=== PATIENT | female | born 1980 | race African-American/Black ===

== ENCOUNTER 2018-10-24 15:16 | Observation (INO) | payer BC ==
[~2018-10-24] VITALS: Ht 170.2 cm; Wt 113.1 kg
[2018-10-24 15:45] LABS: BILIRUBIN,URINE NEGATIVE (NEG); CLARITY,URINE CLEAR; COLOR,URINE YELLOW; NITRITE,URINE NEGATIVE (NEG); PH,URINE 5.5; PROTEIN,URINE 100 mg/dL (NEG-TRACE); UROBILINOGEN,URINE 0.2 mg/dL (0.2 mg/dL)
[2018-10-24] MEDS ORDERED: MORPHINE SULFATE 4 MG/ML VIAL. IV ONE ×2 (15:45→16:15)
[2018-10-24] MEDS ORDERED: MORPHINE SULFATE 4 MG/ML VIAL. ONE (15:45)
[2018-10-24] MEDS ORDERED: IV NORMAL SALINE 1000ML BAG 1,000 ML IV ONE (15:45)
[2018-10-24] MEDS ORDERED: ONDANSETRON PF 4 MG/2 ML VIAL. IV ONE (15:45)
[2018-10-24 15:54] LABS: BACTERIA,URINE MODERATE /HPF (0-FEW); SQUAMOUS EPITHELIAL CELL,UR MANY /LPF
--- NOTE | 2018-10-24 15:54 | PHYS DOC ---
Past Medical History Past Medical History: Diabetes-Type II Past Surgical History: Other Additional Past Surgical Histo: D/C, BREAST REDUCTION Alcohol Use: None Drug Use: None Adult General Chief Complaint Chief Complaint: ABDOMINAL PAIN HPI HPI Patient is a 38 year old AA female who presents to the emergency department with complaints of left-sided abdominal pain for the last hour. Patient states she has vomited so many times that she has been dry heaving. She currently rates her pain a 10 out of 10 on the pain scale, she denies any alleviating or exacerbating factors. ROS She denies any fever, cough, shortness of breath, chest pain, nasal congestion, sore throat, headache, or body aches. Patient denies any diarrhea, bloody stools, dysuria, hematuria, increased urinary frequency, or back pain. She states that her last menstrual cycle was the middle of last month. Patient states there is a possibility she could be . All other ROS is neg unless otherwise noted in HPI. Review of Systems Review of Systems See Above Current Medications Current Medications Current Medications Medications (Trade) Dose Ordered Sig/Tristian Start Time Stop Time Status Last Admin Dose Admin Ketorolac Tromethamine (Toradol 15mg Vial) 15 mg 1X ONCE 10/24/18 16:15 10/24/18 16:16 DC 10/24/18 16:09 15 MG Morphine Sulfate (Morphine Sulfate) 4 mg 1X ONCE 10/24/18 16:15 10/24/18 16:16 DC Ondansetron HCl (Zofran) 4 mg 1X ONCE 10/24/18 15:45 10/24/18 15:46 DC 10/24/18 15:48 4 MG Sodium Chloride 1,000 ml @ 1,000 mls/hr 1X ONCE 10/24/18 15:45 10/24/18 16:44 DC 10/24/18 15:48 1,000 MLS/HR Allergies Allergies Allergies Coded Allergies Type Severity Reaction Last Updated Verified codeine Allergy Unknown swelling 10/24/18 No Physical Exam Physical Exam See Above Constitutional: Well developed, well nourished, moderate distress, non-toxic appearance. [] HENT: Normocephalic, atraumatic, bilateral external ears normal, oropharynx moist, no oral exudates, nose normal. [] Eyes: PERRLA, EOMI, conjunctiva normal, no discharge. [] Neck: Normal range of motion, no stridor. [] Cardiovascular:Heart rate regular rhythm, no murmur [] Lungs & Thorax: Bilateral breath sounds clear to auscultation [] Abdomen: Bowel sounds normal, soft, LLQ and LUQ TTP, no rebound tenderness, no guarding, no masses, no pulsatile masses. [] Skin: Warm, dry, no erythema, no rash. [] Back: No tenderness, no CVA tenderness. [] Extremities: No cyanosis, no clubbing, ROM intact, no edema. [] Neurologic: Alert and oriented X 3, no focal deficits noted. [] Psychologic: Affect normal, judgement normal, mood normal. [] Current Patient Data Vital Signs Vital Signs Date Time Temp Pulse Resp B/P (MAP) Pulse Ox O2 Delivery O2 Flow Rate FiO2 10/24/18 16:30 98 16 140/82 (101) 99 Room Air 10/24/18 15:36 98.4 98.4 Lab Values Laboratory Tests Test 10/24/18 15:25 10/24/18 15:33 10/24/18 15:37 Urine Collection Type Unknown Urine Color Yellow Urine Clarity Clear Urine pH 5.5 Urine Specific [place] >=1.030 Urine Protein 100 mg/dL (NEG-TRACE) Urine Glucose (UA) >=1000 mg/dL (NEG) Urine Ketones (Stick) Trace mg/dL (NEG) Urine Blood Large (NEG) Urine Nitrite Negative (NEG) Urine Bilirubin Negative (NEG) Urine Urobilinogen Dipstick 0.2 mg/dL (0.2 mg/dL) Urine Leukocyte Esterase Negative (NEG) Urine RBC 11-20 /HPF (0-2) Urine WBC 1-4 /HPF (0-4) Urine Squamous Epithelial Cells Many /LPF Urine Bacteria Moderate /HPF (0-FEW) Urine Mucus Marked /LPF White Blood Count 6.8 x10^3/uL (4.0-11.0) Red Blood Count 4.83 x10^6/uL (3.50-5.40) Hemoglobin 11.7 g/dL (12.0-15.5) L Hematocrit 35.6 % (36.0-47.0) L Mean Corpuscular Volume 74 fL (79-100) L Mean Corpuscular Hemoglobin 24 pg (25-35) L Mean Corpuscular Hemoglobin Concent 33 g/dL (31-37) Red Cell Distribution Width 17.8 % (11.5-14.5) H Platelet Count 286 x10^3/uL (140-400) Neutrophils (%) (Auto) 74 % (31-73) H Lymphocytes (%) (Auto) 17 % (24-48) L Monocytes (%) (Auto) 1 % (0-9) Eosinophils (%) (Auto) 8 % (0-3) H Basophils (%) (Auto) 1 % (0-3) Neutrophils # (Auto) 5.0 x10^3/uL (1.8-7.7) Lymphocytes # (Auto) 1.2 x10^3/uL (1.0-4.8) Monocytes # (Auto) 0.1 x10^3/uL (0.0-1.1) Eosinophils # (Auto) 0.5 x10^3/uL (0.0-0.7) Basophils # (Auto) 0.0 x10^3/uL (0.0-0.2) Sodium Level 136 mmol/L (136-145) Potassium Level 3.7 mmol/L (3.5-5.1) Chloride Level 99 mmol/L (98-107) Carbon Dioxide Level 21 mmol/L (21-32) Anion Gap 16 (6-14) H Blood Urea Nitrogen 16 mg/dL (7-20) Creatinine 1.0 mg/dL (0.6-1.0) Estimated GFR (Cockcroft-Gault) 75.1 BUN/Creatinine Ratio 16 (6-20) Glucose Level 318 mg/dL (70-99) H Calcium Level 9.3 mg/dL (8.5-10.1) Magnesium Level 1.4 mg/dL (1.8-2.4) L Total Bilirubin 0.4 mg/dL (0.2-1.0) Aspartate Amino Transferase (AST) 38 U/L (15-37) H Alanine Aminotransferase (ALT) 59 U/L (14-59) Alkaline Phosphatase 85 U/L (46-116) C-Reactive Protein, Quantitative 14.7 mg/L (0-3.3) H Total Protein 8.3 g/dL (6.4-8.2) H Albumin 3.9 g/dL (3.4-5.0) Albumin/Globulin Ratio 0.9 (1.0-1.7) L Lipase 203 U/L (73-393) POC Urine HCG, Qualitative Hcg negative (Negative) Laboratory Tests 10/24/18 15:33 Laboratory Tests 10/24/18 15:33 EKG EKG [] Radiology/Procedures Radiology/Procedures PROCEDURE: CT ABDOMEN PELVIS WO CONTRAST Exam: CT abdomen and pelvis without contrast INDICATION: Left lower quadrant pain TECHNIQUE: Sequential axial images through the abdomen and pelvis obtained without IV contrast. Sagittal and coronal reformatted images were reconstructed from the axial data and reviewed. Comparisons: None FINDINGS: Heart size is normal. No pericardial effusion. Visualized lung bases are clear. No pleural effusion. Evaluation of the solid organs is limited secondary to noncontrast technique. Liver, spleen, pancreas, gallbladder and adrenals are unremarkable. There is moderate left-sided hydronephrosis. 8 mm calculus at the left ureterovesical junction. Nonobstructing 8 mm calculus at the lower pole of the left kidney. No other renal or ureteral calculi are identified. Bladder is decompressed not well evaluated. Uterus is not enlarged. No abnormal adnexal mass. Large and small bowel are unremarkable. Appendix is not identified. No free intra-abdominal air or fluid. Abdominal aorta has a normal course and caliber. No enlarged intra-abdominal lymph nodes are identified. No suspicious osseous lesions or acute fractures. IMPRESSION: 1. There is a 8 mm calculus at the left ureterovesical junction causing moderate left-sided hydronephrosis. 2. Nonobstructing 8 mm calculus at the lower pole of the left kidney. [] Course & Med Decision Making Course & Med Decision Making Pertinent Labs and Imaging studies reviewed. (See chart for details) dx: L kidney stone, nausea & vomiting Pt was given a total of 30 mg toradol, 4 mg zofran, 8 mg of morphine, and 1 L of NS. Pt's pain decreased but patient continued to be tachycardic and shaky, will admit for further observation and pain control CMP anion gap 16, gluocse 318, Mg 1.4, AST 38, Crp 14.7 otherwise unremarkable, CBC pending Dr. Epps aware, UA concerning for >1000 glucose, 11-[address] revealed 8 mm calculus at the left ureterovesical junction causing moderate left-sided hydronephrosis. 1711-Spoke with Dr. Anast if patient will tolerate d/c have patient follow up in the office tomorrow and prescribe Flomax 0.4 once daily, ibuprofen 600 mg q6 hours, and hydrocodone prn. 1718- Spoke with patient who remains tachycardic rate of 120's and shaky. Pt reports concern of inability to control pain at home. Offered admission to patient who agreed with POC. 1725- Spoke with Dr. Giles who is the admitting physician, and care was assumed following discussion of patient. 30 mg of IV Toradol ordered every 6 hours as needed for pain per his orders. Patient's vital signs stable. Patient remains afebrile, appears nontoxic, respirations even and unlabored. Patient will be admitted to the med/surg floor for OBS. Patient's case and plan of care also discussed with Dr. Alis Ardon Disclaimer Reva Disclaimer This electronic medical record was generated, in whole or in part, using a voice recognition dictation system. Departure Departure Impression: Primary Impression: Left renal stone Additional Impressions: Nausea & vomiting Hydronephrosis with renal calculous obstruction Disposition: ADMITTED INPATIENT Admitting Physician: MILAGROS (juan miguel) Condition: STABLE Referrals: OLY DOVE (PCP) Problem Qualifiers Additional Impressions: Nausea & vomiting Vomiting type: unspecified Vomiting Intractability: non-intractable Qualified Codes: R11.2 - Nausea with vomiting, unspecified SUZANNE AGUAYO SWITCH OPERATOR Oct 24, 2018 15:54
[2018-10-24 15:57] LABS: CALCIUM 9.3 mg/dL (8.5-10.1); GFR 75.1; POTASSIUM 3.7 mmol/L (3.5-5.1)
[2018-10-24 16:03] LABS: ALBUMIN 3.9 g/dL (3.4-5.0); ALBUMIN/GLOBULIN RATIO 0.9 (1.0-1.7); C-REACTIVE PROTEIN 14.7 mg/L (0-3.3); MAGNESIUM 1.4 mg/dL (1.8-2.4); TOTAL BILIRUBIN 0.4 mg/dL (0.2-1.0); TOTAL PROTEIN 8.3 g/dL (6.4-8.2)
[2018-10-24] MEDS ORDERED: KETOROLAC 15 MG/ML VIAL. ONE (16:07)
[2018-10-24] MEDS ORDERED: KETOROLAC 15 MG/ML VIAL. IV ONE ×2 (16:15→17:30)
--- NOTE | 2018-10-24 16:53 | RAD ---
Exam: CT abdomen and pelvis without contrast INDICATION: Left lower quadrant pain TECHNIQUE: Sequential axial images through the abdomen and pelvis obtained without IV contrast. Sagittal and coronal reformatted images were reconstructed from the axial data and reviewed. Comparisons: None FINDINGS: Heart size is normal. No pericardial effusion. Visualized lung bases are clear. No pleural effusion. Evaluation of the solid organs is limited secondary to noncontrast technique. Liver, spleen, pancreas, gallbladder and adrenals are unremarkable. There is moderate left-sided hydronephrosis. 8 mm calculus at the left ureterovesical junction. Nonobstructing 8 mm calculus at the lower pole of the left kidney. No other renal or ureteral calculi are identified. Bladder is decompressed not well evaluated. Uterus is not enlarged. No abnormal adnexal mass. Large and small bowel are unremarkable. Appendix is not identified. No free intra-abdominal air or fluid. Abdominal aorta has a normal course and caliber. No enlarged intra-abdominal lymph nodes are identified. No suspicious osseous lesions or acute fractures. IMPRESSION: 1. There is a 8 mm calculus at the left ureterovesical junction causing moderate left-sided hydronephrosis. 2. Nonobstructing 8 mm calculus at the lower pole of the left kidney. Exposure: One or more of the following in the visualized dose reduction techniques were utilized for this examination: 1. Automated exposure control 2. Adjustment of the MA and/or KV according to patient size 3. Use of iterative of reconstructive technique Electronically signed by: Hernan Molina MD (10/24/2018 4:50 PM) [id number]
[2018-10-24] MEDS ORDERED: ONDANSETRON PF 4 MG/2 ML VIAL. IV PRN (17:30)
[2018-10-24 17:33] LABS: BASO % 1 % (0-3); EOS # 0.5 x10^3/uL (0.0-0.7); EOS % 8 % (0-3); HEMATOCRIT 35.6 % (36.0-47.0); HEMOGLOBIN 11.7 g/dL (12.0-15.5); LYMPH # 1.2 x10^3/uL (1.0-4.8); LYMPH % 17 % (24-48); MEAN CORPUSCULAR HEMOGLOBIN 24 pg (25-35); MEAN CORPUSCULAR HGB CONC 33 g/dL (31-37); MEAN CORPUSCULAR VOLUME 74 fL (79-100); MONO # 0.1 x10^3/uL (0.0-1.1); MONO % 1 % (0-9); NEUT % 74 % (31-73); PLATELET COUNT 286 x10^3/uL (140-400); RED BLOOD COUNT 4.83 x10^6/uL (3.50-5.40); RED CELL DISTRIBUTION WIDTH 17.8 % (11.5-14.5); WHITE BLOOD COUNT 6.8 x10^3/uL (4.0-11.0)
[2018-10-24] MEDS ORDERED: TAMSULOSIN 0.4 MG CAP.ER.24H. PO ONE (17:45)
[2018-10-24] MEDS ORDERED: ACETAMINOPHEN 500 MG TABLET PO ONE (18:30)
[2018-10-24 20:00] VITALS: BP 104/65
--- NOTE | 2018-10-24 20:01 | NUR ---
The patient, MICHEAL JEFFREY, 38 y/o, F admitted by MICHELLE CHRISTOPHER MD, was given written information regarding hospital policies, unit procedures and contact persons. Valuables were checked and her.
[2018-10-24] MEDS ORDERED: LIRA0.6P2 SQ (21:13)
[2018-10-24] MEDS ORDERED: GLYB5TAB3 PO (21:13)
[2018-10-24] MEDS ORDERED: METF10007 PO ×2 (21:13)
[2018-10-24] MEDS ORDERED: IV DEXTROSE 5% 250 ML BAG. IV PRN (21:15)
[2018-10-24] MEDS ORDERED: POLYETHYLENE GLYCOL 3350 17 GM PACKET. PO PRN (21:15)
[2018-10-24] MEDS ORDERED: DEXTROSE 50% 25 GM / 50ML DISP.SYRIN. IV PRN (21:15)
[2018-10-24] MEDS ORDERED: MAGNESIUM SULFATE 4GM 100 ML IV ONE (22:00)
[2018-10-24] MEDS: IV NORMAL SALINE 1000ML BAG 1,000 ML IV SCH (22:12)
[2018-10-24] MEDS: KETOROLAC 30 MG/ML VIAL. IV PRN (22:13)
[2018-10-24] MEDS ORDERED: INSULIN GLARGINE SYRINGE. SQ SCH (22:15)
[2018-10-24 23:00] VITALS: BP 87/41
[2018-10-24] MEDS: traMADol 50 MG TABLET PO PRN (23:54)
[2018-10-25 03:00] VITALS: BP 86/41
[2018-10-25] MEDS: KETOROLAC 30 MG/ML VIAL. IV PRN ×2 (04:21→10:21)
[2018-10-25 07:00] VITALS: BP 95/56
[2018-10-25] MEDS: traMADol 50 MG TABLET PO PRN ×2 (07:22→13:43)
[2018-10-25] MEDS: IV NORMAL SALINE 1000ML BAG 1,000 ML IV SCH (07:47)
[2018-10-25] MEDS: INSULIN LISPRO 300 UNITS/3 ML VIAL. SQ SCH ×2 (08:18→11:59)
--- NOTE | 2018-10-25 08:48 | PDOC2 ---
UROLOGY CONSULT Date of Consult Date of Consult DATE: 10/25/18 TIME: 08:46 Reason for Consult Reason for Consult: L kidney stone Identification/Chief Complaint Chief Complaint left abdominal pain Source Source: Chart review, Patient History of Present Illness Reason for Visit: 38yo female who presented to ER yesterday with nausea, vomiting, and left sided abdominal pain. CT showed 8mm left UVJ stone with moderate hydronephrosis. WBC and Creatinine WNL. UA with large blood. She was admitted for pain control last night. Today she has passed a stone and kept it in a specimen cup. She feels that the pain is starting to improve. She still feels nauseous but no vomiting. She has no difficulty passing urine and denies dysuria, hematuria, fevers today. She has a history of passing multiple stones in the past. Past Medical History Renal/: Other (kidney stones) Endocrine: Diabetes Current Problem List Problems: (1) Ureteral stone with hydronephrosis (2) Left renal stone Current Medications Current Medications Current Medications Acetaminophen (Tylenol) 1,000 mg 1X ONCE PO Last administered on 10/24/18at 18:34; Start 10/24/18 at 18:30; Stop 10/24/18 at 18:35; Status DC Dextrose 250 ml PRN Q15MIN PRN IV SEE COMMENTS; Start 10/24/18 at 21:15 Dextrose (Dextrose 50%-Water Syringe) 12.5 gm PRN Q15MIN PRN IV SEE COMMENTS; Start 10/24/18 at 21:15 Insulin Glargine (Lantus Syringe) 8 unit QHS SQ Last administered on 10/24/18at 22:19; Start 10/24/18 at 22:15 Insulin Human Lispro (HumaLOG) 0-9 UNITS TIDWMEALS SQ Last administered on 10/25/18at 08:18; Start 10/25/18 at 08:00 Ketorolac Tromethamine (Toradol 15mg Vial) 15 mg 1X ONCE IV Last administered on 10/24/18at 16:09; Start 10/24/18 at 16:15; Stop 10/24/18 at 16:16; Status DC Ketorolac Tromethamine (Toradol 15mg Vial) 15 mg 1X ONCE IV Last administered on 10/24/18at 18:34; Start 10/24/18 at 17:30; Stop 10/24/18 at 17:31; Status DC Ketorolac Tromethamine (Toradol 15mg Vial) 15 mg STK-MED ONCE .ROUTE ; Start 10/24/18 at 16:07; Stop 10/24/18 at 16:07; Status DC Ketorolac Tromethamine (Toradol 30mg Vial) 30 mg PRN Q6HRS PRN IV pain Last administered on 10/25/18at 04:22; Start 10/24/18 at 17:30; Stop 10/29/18 at 17:29 Magnesium Sulfate 100 ml @ 25 mls/hr 1X ONCE IV Last administered on 10/24/18at 22:13; Start 10/24/18 at 22:00; Stop 10/25/18 at 01:59; Status DC Morphine Sulfate (Morphine Sulfate) 4 mg 1X ONCE IV Last administered on 10/24/18at 15:48; Start 10/24/18 at 15:45; Stop 10/24/18 at 15:46; Status DC Morphine Sulfate (Morphine Sulfate) 4 mg 1X ONCE IV ; Start 10/24/18 at 16:15; Stop 10/24/18 at 16:16; Status DC Morphine Sulfate (Morphine Sulfate) 4 mg STK-MED ONCE .ROUTE ; Start 10/24/18 at 15:45; Stop 10/24/18 at 15:46; Status DC Ondansetron HCl (Zofran) 4 mg 1X ONCE IV Last administered on 10/24/18at 15:48; Start 10/24/18 at 15:45; Stop 10/24/18 at 15:46; Status DC Ondansetron HCl (Zofran) 4 mg PRN Q8HRS PRN IV NAUSEA/VOMITING; Start 10/24/18 at 17:30; Stop 10/25/18 at 17:29 Polyethylene Glycol (miraLAX PACKET) 17 gm PRN DAILY PRN PO CONSTIPATION; Start 10/24/18 at 21:15 Sodium Chloride 1,000 ml @ 100 mls/hr Q10H IV Last administered on 10/25/18at 07:47; Start 10/24/18 at 21:45 Sodium Chloride 1,000 ml @ 1,000 mls/hr 1X ONCE IV Last administered on 10/24/18at 15:48; Start 10/24/18 at 15:45; Stop 10/24/18 at 16:44; Status DC Tamsulosin HCl (Flomax) 0.4 mg 1X ONCE PO Last administered on 10/24/18at 18:34; Start 10/24/18 at 17:45; Stop 10/24/18 at 17:46; Status DC Tramadol HCl (Ultram) 50 mg PRN Q6HRS PRN PO PAIN Last administered on 10/25/18at 07:23; Start 10/24/18 at 22:00 Allergies Allergies: Coded Allergies: codeine (Unverified Allergy, Unknown, swelling, 10/24/18) Has tolerated morphine ROS Review Of Systems: CONSTITUTIONAL: No fever or chills EYES: No recent changes SKIN: No rash or itching CARDIOVASCULAR: No chest pain, syncope, palpitations, or edema RESPIRATORY: No SOB or cough GASTROINTESTINAL: + nausea, left abdominal pain NEUROLOGICAL: No headaches or weakness ENDOCRINE: No cold or heat intolerance GENITOURINARY: No urgency or frequency of urination MUSCULOSKELETAL: No back pain or joint pain LYMPHATICS: No enlarged lymph nodes PSYCHIATRIC: No anxiety or depression Physical Exam Physical Exam: General: Pleasant, no acute distress, well groomed Eyes: conjunctiva anicteric, eyes full range of motion ENT: moist oral mucosa, normal dentition Neck: Trachea midline, no masses Respiratory: unlabored breathing, not using accessory muscles Cardiovascular: Regular peripheral pulses, no peripheral edema Abdomen: mild LLQ tenderness, nondistended, no hepatosplenomegaly, no masses Skin: no rashes or skin lesions on visualized skin Psych: normal mood, affect. Alert and oriented x 3. Vitals VITALS Vital Signs Date Time Temp Pulse Resp B/P (MAP) Pulse Ox O2 Delivery O2 Flow Rate FiO2 10/25/18 07:23 18 95 Room Air 10/25/18 03:00 98.8 117 86/41 (56) 98.8 Labs Labs Laboratory Tests Test 10/24/18 15:25 10/24/18 15:33 10/24/18 15:37 10/24/18 20:27 Urine Collection Type Unknown Urine Color Yellow Urine Clarity Clear Urine pH 5.5 Urine Specific [place] >=1.030 Urine Protein 100 mg/dL (NEG-TRACE) Urine Glucose (UA) >=1000 mg/dL (NEG) Urine Ketones (Stick) Trace mg/dL (NEG) Urine Blood Large (NEG) Urine Nitrite Negative (NEG) Urine Bilirubin Negative (NEG) Urine Urobilinogen Dipstick 0.2 mg/dL (0.2 mg/dL) Urine Leukocyte Esterase Negative (NEG) Urine RBC 11-20 /HPF (0-2) Urine WBC 1-4 /HPF (0-4) Urine Squamous Epithelial Cells Many /LPF Urine Bacteria Moderate /HPF (0-FEW) Urine Mucus Marked /LPF White Blood Count 6.8 x10^3/uL (4.0-11.0) Red Blood Count 4.83 x10^6/uL (3.50-5.40) Hemoglobin 11.7 g/dL (12.0-15.5) Hematocrit 35.6 % (36.0-47.0) Mean Corpuscular Volume 74 fL (79-100) Mean Corpuscular Hemoglobin 24 pg (25-35) Mean Corpuscular Hemoglobin Concent 33 g/dL (31-37) Red Cell Distribution Width 17.8 % (11.5-14.5) Platelet Count 286 x10^3/uL (140-400) Neutrophils (%) (Auto) 74 % (31-73) Lymphocytes (%) (Auto) 17 % (24-48) Monocytes (%) (Auto) 1 % (0-9) Eosinophils (%) (Auto) 8 % (0-3) Basophils (%) (Auto) 1 % (0-3) Neutrophils # (Auto) 5.0 x10^3/uL (1.8-7.7) Lymphocytes # (Auto) 1.2 x10^3/uL (1.0-4.8) Monocytes # (Auto) 0.1 x10^3/uL (0.0-1.1) Eosinophils # (Auto) 0.5 x10^3/uL (0.0-0.7) Basophils # (Auto) 0.0 x10^3/uL (0.0-0.2) Sodium Level 136 mmol/L (136-145) Potassium Level 3.7 mmol/L (3.5-5.1) Chloride Level 99 mmol/L (98-107) Carbon Dioxide Level 21 mmol/L (21-32) Anion Gap 16 (6-14) Blood Urea Nitrogen 16 mg/dL (7-20) Creatinine 1.0 mg/dL (0.6-1.0) Estimated GFR (Cockcroft-Gault) 75.1 BUN/Creatinine Ratio 16 (6-20) Glucose Level 318 mg/dL (70-99) Calcium Level 9.3 mg/dL (8.5-10.1) Magnesium Level 1.4 mg/dL (1.8-2.4) Total Bilirubin 0.4 mg/dL (0.2-1.0) Aspartate Amino Transf (AST/SGOT) 38 U/L (15-37) Alanine Aminotransferase (ALT/SGPT) 59 U/L (14-59) Alkaline Phosphatase 85 U/L (46-116) C-Reactive Protein, Quantitative 14.7 mg/L (0-3.3) Total Protein 8.3 g/dL (6.4-8.2) Albumin 3.9 g/dL (3.4-5.0) Albumin/Globulin Ratio 0.9 (1.0-1.7) Lipase 203 U/L (73-393) Bedside Urine HCG, Qualitative Hcg negative (Negative) Glucose (Fingerstick) 263 mg/dL (70-99) Test 10/25/18 08:09 Glucose (Fingerstick) 317 mg/dL (70-99) Laboratory Tests Test 10/24/18 15:25 10/24/18 15:33 10/24/18 15:37 10/24/18 20:27 Urine Collection Type Unknown Urine Color Yellow Urine Clarity Clear Urine pH 5.5 Urine Specific [place] >=1.030 Urine Protein 100 mg/dL (NEG-TRACE) Urine Glucose (UA) >=1000 mg/dL (NEG) Urine Ketones (Stick) Trace mg/dL (NEG) Urine Blood Large (NEG) Urine Nitrite Negative (NEG) Urine Bilirubin Negative (NEG) Urine Urobilinogen Dipstick 0.2 mg/dL (0.2 mg/dL) Urine Leukocyte Esterase Negative (NEG) Urine RBC 11-20 /HPF (0-2) Urine WBC 1-4 /HPF (0-4) Urine Squamous Epithelial Cells Many /LPF Urine Bacteria Moderate /HPF (0-FEW) Urine Mucus Marked /LPF White Blood Count 6.8 x10^3/uL (4.0-11.0) Red Blood Count 4.83 x10^6/uL (3.50-5.40) Hemoglobin 11.7 g/dL (12.0-15.5) Hematocrit 35.6 % (36.0-47.0) Mean Corpuscular Volume 74 fL (79-100) Mean Corpuscular Hemoglobin 24 pg (25-35) Mean Corpuscular Hemoglobin Concent 33 g/dL (31-37) Red Cell Distribution Width 17.8 % (11.5-14.5) Platelet Count 286 x10^3/uL (140-400) Neutrophils (%) (Auto) 74 % (31-73) Lymphocytes (%) (Auto) 17 % (24-48) Monocytes (%) (Auto) 1 % (0-9) Eosinophils (%) (Auto) 8 % (0-3) Basophils (%) (Auto) 1 % (0-3) Neutrophils # (Auto) 5.0 x10^3/uL (1.8-7.7) Lymphocytes # (Auto) 1.2 x10^3/uL (1.0-4.8) Monocytes # (Auto) 0.1 x10^3/uL (0.0-1.1) Eosinophils # (Auto) 0.5 x10^3/uL (0.0-0.7) Basophils # (Auto) 0.0 x10^3/uL (0.0-0.2) Sodium Level 136 mmol/L (136-145) Potassium Level 3.7 mmol/L (3.5-5.1) Chloride Level 99 mmol/L (98-107) Carbon Dioxide Level 21 mmol/L (21-32) Anion Gap 16 (6-14) Blood Urea Nitrogen 16 mg/dL (7-20) Creatinine 1.0 mg/dL (0.6-1.0) Estimated GFR (Cockcroft-Gault) 75.1 BUN/Creatinine Ratio 16 (6-20) Glucose Level 318 mg/dL (70-99) Calcium Level 9.3 mg/dL (8.5-10.1) Magnesium Level 1.4 mg/dL (1.8-2.4) Total Bilirubin 0.4 mg/dL (0.2-1.0) Aspartate Amino Transf (AST/SGOT) 38 U/L (15-37) Alanine Aminotransferase (ALT/SGPT) 59 U/L (14-59) Alkaline Phosphatase 85 U/L (46-116) C-Reactive Protein, Quantitative 14.7 mg/L (0-3.3) Total Protein 8.3 g/dL (6.4-8.2) Albumin 3.9 g/dL (3.4-5.0) Albumin/Globulin Ratio 0.9 (1.0-1.7) Lipase 203 U/L (73-393) Bedside Urine HCG, Qualitative Hcg negative (Negative) Glucose (Fingerstick) 263 mg/dL (70-99) Test 10/25/18 08:09 Glucose (Fingerstick) 317 mg/dL (70-99) Images Images CT abd/pelvis 10/24/18 IMPRESSION: 1. There is a 8 mm calculus at the left ureterovesical junction causing moderate left-sided hydronephrosis. 2. Nonobstructing 8 mm calculus at the lower pole of the left kidney. KUB 10/25/18 IMPRESSION: 1. Vague amorphous 8mm calculus in the left hemiabdomen, likely renal. Assessment/Plan Assessment/Plan Left ureteral stone with hydronephrosis Appears to have passed a stone this morning. Will send for stone analysis. Pain improving KUB today shows nonobstructing 8mm remaining stone in left kidney. No ureter stones seen. Office f/u with Dr. Villeda at [place] on 11/24/18 at 1:20pm. MARSHA SRIVASTAVA Oct 25, 2018 08:48
[2018-10-25] MEDS ORDERED: TRAM50TA PO (09:10)
[2018-10-25] MEDS ORDERED: TAMS0.4C97 PO (09:10)
[2018-10-25] MEDS ORDERED: KETO10TA PO (09:10)
[2018-10-25] MEDS ORDERED: KETOROLAC TROMETHAMINE 10 MG TABLET PO PRN (09:15)
[2018-10-25] MEDS ORDERED: ONDANSETRON PF 4 MG/2 ML VIAL. IV PRN (09:15)
--- NOTE | 2018-10-25 09:49 | NUR ---
Kidney stone specimen carried to pathology by this RN.
[2018-10-25] MEDS ORDERED: glyBURIDE 5 MG TABLET PO SCH (10:00)
[2018-10-25] MEDS ORDERED: metFORMIN XR 500 MG TAB.ER.24H PO SCH (10:00)
[2018-10-25 11:00] VITALS: BP 103/63
--- NOTE | 2018-10-25 11:32 | RAD ---
KUB without comparison for check left-sided stones. FINDINGS: There is a vague amorphous a millimeter calcification in the left hemiabdomen ejecting over the renal shadow. Phleboliths are seen in the pelvis. Bowel gas pattern is nonobstructive. IMPRESSION: 1. Vague amorphous 8mm calculus in the left hemiabdomen, likely renal. Electronically signed by: Kalr García MD (10/25/2018 11:29 AM) [facility]
--- NOTE | 2018-10-25 13:22 | PDOC1 ---
History and Physical Date of Admission Date of Admission DATE: 10/25/18 TIME: 13:18 Identification/Chief Complaint Chief Complaint n/v Source Source: Caregiver, Chart review, Patient History of Present Illness History of Present Illness 38-year-old obese -[place] female with a BMI 39.1, this is her third episode of kidney stone. In the past 2 times, spontaneous passed - never needed urologic intervention. Was found to have an 8 mm kidney stone with some mild hydronephrosis on that side. Normal creatinine. She also spontaneously passed the stone - was sent to the lab. Blood sugar high - diabetic. Seen by urology and had no further recommendations just to keep hydration Flomax, sent for stone analysis. Pain is still significant, called by RN. We are starting some by mouth and IV pain meds. I addressed the blood sugars, reconcile home meds. No evidence of UTI on UA. Unknown A1c. Past Medical History Cardiovascular: No pertinent hx Pulmonary: No pertinent hx Renal/: Other (kidney stones) Endocrine: Diabetes Past Surgical History Past Surgical History: No pertinent history Family History Family History: Hypertension Social History Smoke: No ALCOHOL: none Drugs: None Current Problem List Problem List Problems Medical Problems: (1) Hydronephrosis with renal calculous obstruction Status: Acute (2) Left renal stone Status: Acute (3) Nausea & vomiting Status: Acute Current Medications Current Medications Current Medications Sodium Chloride 1,000 ml @ 1,000 mls/hr 1X ONCE IV Last administered on 10/24/18at 15:48; Start 10/24/18 at 15:45; Stop 10/24/18 at 16:44; Status DC Ondansetron HCl (Zofran) 4 mg 1X ONCE IV Last administered on 10/24/18at 15:48; Start 10/24/18 at 15:45; Stop 10/24/18 at 15:46; Status DC Morphine Sulfate (Morphine Sulfate) 4 mg 1X ONCE IV Last administered on 10/24/18at 15:48; Start 10/24/18 at 15:45; Stop 10/24/18 at 15:46; Status DC Morphine Sulfate (Morphine Sulfate) 4 mg STK-MED ONCE .ROUTE ; Start 10/24/18 at 15:45; Stop 10/24/18 at 15:46; Status DC Ketorolac Tromethamine (Toradol 15mg Vial) 15 mg STK-MED ONCE .ROUTE ; Start 10/24/18 at 16:07; Stop 10/24/18 at 16:07; Status DC Morphine Sulfate (Morphine Sulfate) 4 mg 1X ONCE IV ; Start 10/24/18 at 16:15; Stop 10/24/18 at 16:16; Status DC Ketorolac Tromethamine (Toradol 15mg Vial) 15 mg 1X ONCE IV Last administered on 10/24/18at 16:09; Start 10/24/18 at 16:15; Stop 10/24/18 at 16:16; Status DC Ketorolac Tromethamine (Toradol 15mg Vial) 15 mg 1X ONCE IV Last administered on 10/24/18at 18:34; Start 10/24/18 at 17:30; Stop 10/24/18 at 17:31; Status DC Tamsulosin HCl (Flomax) 0.4 mg 1X ONCE PO Last administered on 10/24/18at 18:34; Start 10/24/18 at 17:45; Stop 10/24/18 at 17:46; Status DC Ketorolac Tromethamine (Toradol 30mg Vial) 30 mg PRN Q6HRS PRN IV pain Last administered on 10/25/18at 10:23; Start 10/24/18 at 17:30; Stop 10/25/18 at 09:12; Status DC Ondansetron HCl (Zofran) 4 mg PRN Q8HRS PRN IV NAUSEA/VOMITING; Start 10/24/18 at 17:30; Stop 10/25/18 at 09:09; Status DC Acetaminophen (Tylenol) 1,000 mg 1X ONCE PO Last administered on 10/24/18at 18:34; Start 10/24/18 at 18:30; Stop 10/24/18 at 18:35; Status DC Magnesium Sulfate 100 ml @ 25 mls/hr 1X ONCE IV Last administered on 10/24/18at 22:13; Start 10/24/18 at 22:00; Stop 10/25/18 at 01:59; Status DC Sodium Chloride 1,000 ml @ 125 mls/hr Q8H IV Last administered on 10/25/18at 07:47; Start 10/24/18 at 21:45 Insulin Glargine (Lantus Syringe) 8 unit QHS SQ Last administered on 10/24/18at 22:19; Start 10/24/18 at 22:15 Insulin Human Lispro (HumaLOG) 0-9 UNITS TIDWMEALS SQ Last administered on 10/25/18at 11:59; Start 10/25/18 at 08:00 Dextrose (Dextrose 50%-Water Syringe) 12.5 gm PRN Q15MIN PRN IV SEE COMMENTS; Start 10/24/18 at 21:15 Dextrose 250 ml PRN Q15MIN PRN IV SEE COMMENTS; Start 10/24/18 at 21:15 Polyethylene Glycol (miraLAX PACKET) 17 gm PRN DAILY PRN PO CONSTIPATION; Start 10/24/18 at 21:15 Tramadol HCl (Ultram) 50 mg PRN Q6HRS PRN PO PAIN Last administered on 10/25/18at 07:23; Start 10/24/18 at 22:00 Ondansetron HCl (Zofran) 4 mg PRN Q6HRS PRN IV NAUSEA/VOMITING; Start 10/25/18 at 09:15 Tamsulosin HCl (Flomax) 0.4 mg QHS PO ; Start 10/25/18 at 21:00 Ketorolac Tromethamine (Toradol) 10 mg PRN TID PRN PO MILD PAIN 1-3 Last administered on 10/25/18 10:26; Start 10/25/18 at 09:15; Stop 10/30/18 at 09:14 Metformin HCl (Glucophage Xr) 1,000 mg BID PO Last administered on 10/25/18 10:26; Start 10/25/18 at 10:00 Glyburide (Diabeta) 5 mg BIDWMEALS PO Last administered on 10/25/18at 10:26; Start 10/25/18 at 10:00 Active Scripts Active Flomax (Tamsulosin Hcl) 0.4 Mg Cap.er.24h 0.4 Mg PO QHS Ketorolac Tromethamine 10 Mg Tablet 10 Mg PO TID PRN Tramadol Hcl 50 Mg Tablet 50 Mg PO PRN Q6HRS PRN Reported Victoza 3-Justin (Liraglutide) 0.6 Mg/0.1 Ml Pen.injctr 1.8 Mg SQ DAILY Metformin Hcl 1,000 Mg Tablet 1,000 Mg PO BIDWMEALS Metformin Hcl 1,000 Mg Tablet 1,000 Mg PO DAILYWBKFT Glyburide 5 Mg Tablet 1 Tab PO BID Allergies Allergies: Coded Allergies: codeine (Unverified Allergy, Unknown, swelling, 10/24/18) Has tolerated morphine ROS Review of System Nausea vomiting flank pain, the rest 14 point review negative Physical Exam General: Alert, Oriented X3, Cooperative, No acute distress HEENT: Atraumatic, PERRLA, EOMI Lungs: Clear to auscultation, Normal air movement Heart: S1S2, RRR, no thrills, no rubs, no gallops, no murmurs Cardiovascular: S1, S2 Breasts: Normal, Rt breast nml w/o mass, Lt breast nml w/o mass, Nipples normal Abdomen: Normal bowel sounds, Soft, No tenderness, No hepatosplenomegaly, No masses Rectal Exam: not examined PELVIC: Nml ext genitalia Extremities: No clubbing, No cyanosis, No edema, Normal pulses, No tenderness/swelling Skin: No rashes, No breakdown, No significant lesion Neuro: Normal gait, Normal speech, Strength at 5/5 X4 ext, Normal tone, Sensation intact, Cranial nerves 3-12 NL, Reflexes 2+ Psych/Mental Status: Mental status NL, Mood NL Vitals Vitals Vital Signs Date Time Temp Pulse Resp B/P (MAP) Pulse Ox O2 Delivery O2 Flow Rate FiO2 10/25/18 11:00 99.6 118 18 103/63 (76) 95 Room Air 99.6 Labs Labs Laboratory Tests Test 10/24/18 15:25 10/24/18 15:33 10/24/18 15:37 10/24/18 20:27 Urine Collection Type Unknown Urine Color Yellow Urine Clarity Clear Urine pH 5.5 Urine Specific [place] >=1.030 Urine Protein 100 mg/dL (NEG-TRACE) Urine Glucose (UA) >=1000 mg/dL (NEG) Urine Ketones (Stick) Trace mg/dL (NEG) Urine Blood Large (NEG) Urine Nitrite Negative (NEG) Urine Bilirubin Negative (NEG) Urine Urobilinogen Dipstick 0.2 mg/dL (0.2 mg/dL) Urine Leukocyte Esterase Negative (NEG) Urine RBC 11-20 /HPF (0-2) Urine WBC 1-4 /HPF (0-4) Urine Squamous Epithelial Cells Many /LPF Urine Bacteria Moderate /HPF (0-FEW) Urine Mucus Marked /LPF White Blood Count 6.8 x10^3/uL (4.0-11.0) Red Blood Count 4.83 x10^6/uL (3.50-5.40) Hemoglobin 11.7 g/dL (12.0-15.5) Hematocrit 35.6 % (36.0-47.0) Mean Corpuscular Volume 74 fL (79-100) Mean Corpuscular Hemoglobin 24 pg (25-35) Mean Corpuscular Hemoglobin Concent 33 g/dL (31-37) Red Cell Distribution Width 17.8 % (11.5-14.5) Platelet Count 286 x10^3/uL (140-400) Neutrophils (%) (Auto) 74 % (31-73) Lymphocytes (%) (Auto) 17 % (24-48) Monocytes (%) (Auto) 1 % (0-9) Eosinophils (%) (Auto) 8 % (0-3) Basophils (%) (Auto) 1 % (0-3) Neutrophils # (Auto) 5.0 x10^3/uL (1.8-7.7) Lymphocytes # (Auto) 1.2 x10^3/uL (1.0-4.8) Monocytes # (Auto) 0.1 x10^3/uL (0.0-1.1) Eosinophils # (Auto) 0.5 x10^3/uL (0.0-0.7) Basophils # (Auto) 0.0 x10^3/uL (0.0-0.2) Sodium Level 136 mmol/L (136-145) Potassium Level 3.7 mmol/L (3.5-5.1) Chloride Level 99 mmol/L (98-107) Carbon Dioxide Level 21 mmol/L (21-32) Anion Gap 16 (6-14) Blood Urea Nitrogen 16 mg/dL (7-20) Creatinine 1.0 mg/dL (0.6-1.0) Estimated GFR (Cockcroft-Gault) 75.1 BUN/Creatinine Ratio 16 (6-20) Glucose Level 318 mg/dL (70-99) Calcium Level 9.3 mg/dL (8.5-10.1) Magnesium Level 1.4 mg/dL (1.8-2.4) Total Bilirubin 0.4 mg/dL (0.2-1.0) Aspartate Amino Transf (AST/SGOT) 38 U/L (15-37) Alanine Aminotransferase (ALT/SGPT) 59 U/L (14-59) Alkaline Phosphatase 85 U/L (46-116) C-Reactive Protein, Quantitative 14.7 mg/L (0-3.3) Total Protein 8.3 g/dL (6.4-8.2) Albumin 3.9 g/dL (3.4-5.0) Albumin/Globulin Ratio 0.9 (1.0-1.7) Lipase 203 U/L (73-393) Bedside Urine HCG, Qualitative Hcg negative (Negative) Glucose (Fingerstick) 263 mg/dL (70-99) Test 10/25/18 08:09 10/25/18 11:52 Glucose (Fingerstick) 317 mg/dL (70-99) 286 mg/dL (70-99) Laboratory Tests Test 10/24/18 15:25 10/24/18 15:33 10/24/18 15:37 10/24/18 20:27 Urine Collection Type Unknown Urine Color Yellow Urine Clarity Clear Urine pH 5.5 Urine Specific [place] >=1.030 Urine Protein 100 mg/dL (NEG-TRACE) Urine Glucose (UA) >=1000 mg/dL (NEG) Urine Ketones (Stick) Trace mg/dL (NEG) Urine Blood Large (NEG) Urine Nitrite Negative (NEG) Urine Bilirubin Negative (NEG) Urine Urobilinogen Dipstick 0.2 mg/dL (0.2 mg/dL) Urine Leukocyte Esterase Negative (NEG) Urine RBC 11-20 /HPF (0-2) Urine WBC 1-4 /HPF (0-4) Urine Squamous Epithelial Cells Many /LPF Urine Bacteria Moderate /HPF (0-FEW) Urine Mucus Marked /LPF White Blood Count 6.8 x10^3/uL (4.0-11.0) Red Blood Count 4.83 x10^6/uL (3.50-5.40) Hemoglobin 11.7 g/dL (12.0-15.5) Hematocrit 35.6 % (36.0-47.0) Mean Corpuscular Volume 74 fL (79-100) Mean Corpuscular Hemoglobin 24 pg (25-35) Mean Corpuscular Hemoglobin Concent 33 g/dL (31-37) Red Cell Distribution Width 17.8 % (11.5-14.5) Platelet Count 286 x10^3/uL (140-400) Neutrophils (%) (Auto) 74 % (31-73) Lymphocytes (%) (Auto) 17 % (24-48) Monocytes (%) (Auto) 1 % (0-9) Eosinophils (%) (Auto) 8 % (0-3) Basophils (%) (Auto) 1 % (0-3) Neutrophils # (Auto) 5.0 x10^3/uL (1.8-7.7) Lymphocytes # (Auto) 1.2 x10^3/uL (1.0-4.8) Monocytes # (Auto) 0.1 x10^3/uL (0.0-1.1) Eosinophils # (Auto) 0.5 x10^3/uL (0.0-0.7) Basophils # (Auto) 0.0 x10^3/uL (0.0-0.2) Sodium Level 136 mmol/L (136-145) Potassium Level 3.7 mmol/L (3.5-5.1) Chloride Level 99 mmol/L (98-107) Carbon Dioxide Level 21 mmol/L (21-32) Anion Gap 16 (6-14) Blood Urea Nitrogen 16 mg/dL (7-20) Creatinine 1.0 mg/dL (0.6-1.0) Estimated GFR (Cockcroft-Gault) 75.1 BUN/Creatinine Ratio 16 (6-20) Glucose Level 318 mg/dL (70-99) Calcium Level 9.3 mg/dL (8.5-10.1) Magnesium Level 1.4 mg/dL (1.8-2.4) Total Bilirubin 0.4 mg/dL (0.2-1.0) Aspartate Amino Transf (AST/SGOT) 38 U/L (15-37) Alanine Aminotransferase (ALT/SGPT) 59 U/L (14-59) Alkaline Phosphatase 85 U/L (46-116) C-Reactive Protein, Quantitative 14.7 mg/L (0-3.3) Total Protein 8.3 g/dL (6.4-8.2) Albumin 3.9 g/dL (3.4-5.0) Albumin/Globulin Ratio 0.9 (1.0-1.7) Lipase 203 U/L (73-393) Bedside Urine HCG, Qualitative Hcg negative (Negative) Glucose (Fingerstick) 263 mg/dL (70-99) Test 10/25/18 08:09 10/25/18 11:52 Glucose (Fingerstick) 317 mg/dL (70-99) 286 mg/dL (70-99) VTE Prophylaxis Ordered VTE Prophylaxis Devices: Yes VTE Pharmacological Prophylaxi: Yes Assessment/Plan Assessment/Plan Left 8 mm kidney stone, third episode-spontaneously passed Morbid obesity BMI 39.1 History of kidney stones �2 HON K, DM uncontrolled No evidence UTI Plan: continue hydration Flomax, Toradol by mouth. Check A1c No need for antibiotics Possible home tomorrow once pain better controlled Follow-up lab regarding kidney stone elements JESSE VALENCIA MD Oct 25, 2018 13:22
[2018-10-25] MEDS ORDERED: fentaNYL PF VIAL 100 MCG/2 ML VIAL IV PRN (13:30)
--- NOTE | 2018-10-25 14:08 | PDOC3 ---
Discharge Summary Visit Information Date of Admission: Oct 24, 2018 Date of Discharge: Oct 25, 2018 Admitting Diagnosis Comment: left 8 mm kidney stone, spont passed 3rd episode kidney stone Morbid obesity Final Diagnosis Problems Medical Problems: (1) Hydronephrosis with renal calculous obstruction Status: Acute (2) Left renal stone Status: Acute (3) Nausea & vomiting Status: Acute Brief Hospital Course Allergies Allergies Coded Allergies Type Severity Reaction Last Updated Verified codeine Allergy Unknown swelling 10/24/18 No Vital Signs Vital Signs Date Time Temp Pulse Resp B/P (MAP) Pulse Ox O2 Delivery O2 Flow Rate FiO2 10/25/18 13:43 18 Room Air 10/25/18 11:00 99.6 118 103/63 (76) 95 99.6 Lab Results Laboratory Tests Test 10/24/18 15:25 10/24/18 15:33 10/24/18 15:37 10/24/18 20:27 Urine Collection Type Unknown Urine Color Yellow Urine Clarity Clear Urine pH 5.5 Urine Specific [place] >=1.030 Urine Protein 100 mg/dL (NEG-TRACE) Urine Glucose (UA) >=1000 mg/dL (NEG) Urine Ketones (Stick) Trace mg/dL (NEG) Urine Blood Large (NEG) Urine Nitrite Negative (NEG) Urine Bilirubin Negative (NEG) Urine Urobilinogen Dipstick 0.2 mg/dL (0.2 mg/dL) Urine Leukocyte Esterase Negative (NEG) Urine RBC 11-20 /HPF (0-2) Urine WBC 1-4 /HPF (0-4) Urine Squamous Epithelial Cells Many /LPF Urine Bacteria Moderate /HPF (0-FEW) Urine Mucus Marked /LPF White Blood Count 6.8 x10^3/uL (4.0-11.0) Red Blood Count 4.83 x10^6/uL (3.50-5.40) Hemoglobin 11.7 g/dL (12.0-15.5) Hematocrit 35.6 % (36.0-47.0) Mean Corpuscular Volume 74 fL (79-100) Mean Corpuscular Hemoglobin 24 pg (25-35) Mean Corpuscular Hemoglobin Concent 33 g/dL (31-37) Red Cell Distribution Width 17.8 % (11.5-14.5) Platelet Count 286 x10^3/uL (140-400) Neutrophils (%) (Auto) 74 % (31-73) Lymphocytes (%) (Auto) 17 % (24-48) Monocytes (%) (Auto) 1 % (0-9) Eosinophils (%) (Auto) 8 % (0-3) Basophils (%) (Auto) 1 % (0-3) Neutrophils # (Auto) 5.0 x10^3/uL (1.8-7.7) Lymphocytes # (Auto) 1.2 x10^3/uL (1.0-4.8) Monocytes # (Auto) 0.1 x10^3/uL (0.0-1.1) Eosinophils # (Auto) 0.5 x10^3/uL (0.0-0.7) Basophils # (Auto) 0.0 x10^3/uL (0.0-0.2) Sodium Level 136 mmol/L (136-145) Potassium Level 3.7 mmol/L (3.5-5.1) Chloride Level 99 mmol/L (98-107) Carbon Dioxide Level 21 mmol/L (21-32) Anion Gap 16 (6-14) Blood Urea Nitrogen 16 mg/dL (7-20) Creatinine 1.0 mg/dL (0.6-1.0) Estimated GFR (Cockcroft-Gault) 75.1 BUN/Creatinine Ratio 16 (6-20) Glucose Level 318 mg/dL (70-99) Calcium Level 9.3 mg/dL (8.5-10.1) Magnesium Level 1.4 mg/dL (1.8-2.4) Total Bilirubin 0.4 mg/dL (0.2-1.0) Aspartate Amino Transf (AST/SGOT) 38 U/L (15-37) Alanine Aminotransferase (ALT/SGPT) 59 U/L (14-59) Alkaline Phosphatase 85 U/L (46-116) C-Reactive Protein, Quantitative 14.7 mg/L (0-3.3) Total Protein 8.3 g/dL (6.4-8.2) Albumin 3.9 g/dL (3.4-5.0) Albumin/Globulin Ratio 0.9 (1.0-1.7) Lipase 203 U/L (73-393) Bedside Urine HCG, Qualitative Hcg negative (Negative) Glucose (Fingerstick) 263 mg/dL (70-99) Test 10/25/18 08:09 10/25/18 11:52 Glucose (Fingerstick) 317 mg/dL (70-99) 286 mg/dL (70-99) Laboratory Tests Test 10/24/18 15:25 10/24/18 15:33 10/24/18 15:37 10/24/18 20:27 Urine Collection Type Unknown Urine Color Yellow Urine Clarity Clear Urine pH 5.5 Urine Specific [place] >=1.030 Urine Protein 100 mg/dL (NEG-TRACE) Urine Glucose (UA) >=1000 mg/dL (NEG) Urine Ketones (Stick) Trace mg/dL (NEG) Urine Blood Large (NEG) Urine Nitrite Negative (NEG) Urine Bilirubin Negative (NEG) Urine Urobilinogen Dipstick 0.2 mg/dL (0.2 mg/dL) Urine Leukocyte Esterase Negative (NEG) Urine RBC 11-20 /HPF (0-2) Urine WBC 1-4 /HPF (0-4) Urine Squamous Epithelial Cells Many /LPF Urine Bacteria Moderate /HPF (0-FEW) Urine Mucus Marked /LPF White Blood Count 6.8 x10^3/uL (4.0-11.0) Red Blood Count 4.83 x10^6/uL (3.50-5.40) Hemoglobin 11.7 g/dL (12.0-15.5) Hematocrit 35.6 % (36.0-47.0) Mean Corpuscular Volume 74 fL (79-100) Mean Corpuscular Hemoglobin 24 pg (25-35) Mean Corpuscular Hemoglobin Concent 33 g/dL (31-37) Red Cell Distribution Width 17.8 % (11.5-14.5) Platelet Count 286 x10^3/uL (140-400) Neutrophils (%) (Auto) 74 % (31-73) Lymphocytes (%) (Auto) 17 % (24-48) Monocytes (%) (Auto) 1 % (0-9) Eosinophils (%) (Auto) 8 % (0-3) Basophils (%) (Auto) 1 % (0-3) Neutrophils # (Auto) 5.0 x10^3/uL (1.8-7.7) Lymphocytes # (Auto) 1.2 x10^3/uL (1.0-4.8) Monocytes # (Auto) 0.1 x10^3/uL (0.0-1.1) Eosinophils # (Auto) 0.5 x10^3/uL (0.0-0.7) Basophils # (Auto) 0.0 x10^3/uL (0.0-0.2) Sodium Level 136 mmol/L (136-145) Potassium Level 3.7 mmol/L (3.5-5.1) Chloride Level 99 mmol/L (98-107) Carbon Dioxide Level 21 mmol/L (21-32) Anion Gap 16 (6-14) Blood Urea Nitrogen 16 mg/dL (7-20) Creatinine 1.0 mg/dL (0.6-1.0) Estimated GFR (Cockcroft-Gault) 75.1 BUN/Creatinine Ratio 16 (6-20) Glucose Level 318 mg/dL (70-99) Calcium Level 9.3 mg/dL (8.5-10.1) Magnesium Level 1.4 mg/dL (1.8-2.4) Total Bilirubin 0.4 mg/dL (0.2-1.0) Aspartate Amino Transf (AST/SGOT) 38 U/L (15-37) Alanine Aminotransferase (ALT/SGPT) 59 U/L (14-59) Alkaline Phosphatase 85 U/L (46-116) C-Reactive Protein, Quantitative 14.7 mg/L (0-3.3) Total Protein 8.3 g/dL (6.4-8.2) Albumin 3.9 g/dL (3.4-5.0) Albumin/Globulin Ratio 0.9 (1.0-1.7) Lipase 203 U/L (73-393) Bedside Urine HCG, Qualitative Hcg negative (Negative) Glucose (Fingerstick) 263 mg/dL (70-99) Test 10/25/18 08:09 10/25/18 11:52 Glucose (Fingerstick) 317 mg/dL (70-99) 286 mg/dL (70-99) Brief Hospital Course Ms. Padilla is a 38 old [sex] who presented with [ ] Assessment Assessment History of Present Illness 38-year-old obese -[place] female with a BMI 39.1, this is her third episode of kidney stone. In the past 2 times, spontaneous passed - never needed urologic intervention. Was found to have an 8 mm kidney stone with some mild hydronephrosis on that side. Normal creatinine. She also spontaneously passed the stone - was sent to the lab. Blood sugar high - diabetic. Seen by urology and had no further recommendations just to keep hydration Flomax, sent for stone analysis. Pain is still significant, called by RN. We are starting some by mouth and IV pain meds. I addressed the blood sugars, reconcile home meds. No evidence of UTI on UA. Unknown A1c. COURSE: if pain controllable, home later - rx on chart ff up with urology re kidney stone components Discharge Information Condition at Discharge: Improved, Stable Disposition/Orders: D/C to Home Scheduled Glyburide (Glyburide) 5 Mg Tablet, 1 TAB PO BID for diabetes, #60 Ref 5 (Re ported) Entered as Reported by: DURAN CONNELL on 10/24/182112 Last Action: New Order on 10/24/182112 by DURAN HER Liraglutide (Victoza 3-Justin) 0.6 Mg/0.1 Ml Pen.injctr, 1.8 MG SQ DAILY for diabetes, #9 Ref 3 (Reported) Entered as Reported by: DURAN CONNELL on 10/24/182112 Last Action: New Order on 10/24/182112 by DURAN HER Metformin Hcl (Metformin Hcl) 1,000 Mg Tablet, 1,000 MG PO DAILYWBKFT for ANTI- DIABETIC, Ref 0 (Reported) Entered as Reported by: DURAN CONNELL on 10/24/182112 Last Action: New Order on 10/24/182112 by DURAN HER Metformin Hcl (Metformin Hcl) 1,000 Mg Tablet, 1,000 MG PO BIDWMEALS for diabetes, (Reported) Entered as Reported by: DURAN CONNELL on 10/24/182112 Last Action: New Order on 10/24/182112 by DURAN HER Tamsulosin Hcl (Flomax) 0.4 Mg Cap.er.24h, 0.4 MG PO QHS for kidney stone, #30 Prescribed by: JESSE VALENCIA on 10/25/18 09 Scheduled PRN Ketorolac Tromethamine (Ketorolac Tromethamine) 10 Mg Tablet, 10 MG PO TID PRN for MILD PAIN 1-3, #30 Prescribed by: JESSE VALENCIA on 10/25/18909 Tramadol Hcl (Tramadol Hcl) 50 Mg Tablet, 50 MG PO PRN Q6HRS PRN for PAIN, #20 Prescribed by: JESSE VALENCIA on 10/25/18909 JESSE VALENCIA MD Oct 25, 2018 14:08
--- NOTE | 2018-10-25 14:55 | NUR ---
Patient passed second stone, to lab per order Dr. Woo to Marylin in pathology.
[2018-10-25 15:00] VITALS: BP 115/68
--- NOTE | 2018-10-25 15:47 | NUR ---
Patient verb. pain controlled with oral medications and ready for discharge. Discharge instructions, medications and prescriptions reviewed with patient, she verb. understanding all instructions and denies questions. Patient received all instructions, prescriptions, strainer for urine and specipan for urine. Patient ready for discharge when ride arrives.
--- NOTE | 2018-10-25 16:22 | NUR ---
Patient discharge to home with her husb. with all belongings, intructions, prescriptions and urine strainer.
[2018-10-25] MEDS ORDERED: TAMSULOSIN 0.4 MG CAP.ER.24H. PO SCH (21:00)
[2018-10-26 00:11] LABS: HEMOGLOBIN A1C 10.1 % (4.8-5.6)
--- NOTE | 2018-10-26 08:07 | PATHOLOGY ---
[facility] Accession Number: [id number] . 01 Material submitted: . kidney - SPONTANEOUSLY PASSED KIDNEY STONE . 01 Clinical history: . None provided . 02 Diagnosis: Kidney stone: - Consistent with calculus. - The specimen is sent out for further processing. Report pending outside analysis with results to follow in an addendum. MBR/10/25/2018 . 02 Electronically signed: . Richie Natarajan MD, Pathologist NPI- [id number] . 01 Gross description: . The specimen is received fresh, labeled "Sulma Padilla, kidney stone". Received is a single dark brown calculus measuring 0.5 cm in maximum dimensions. The specimen is forwarded to an outside laboratory for further processing. ([facility]; 10/25/2018) QAC/QAC . 02 Pathologist provided ICD-10: N20.0 . 02 CPT . 222119 Specimen Comment: A courtesy copy of this report has been sent to Specimen Comment: [phone]. Specimen Comment: Report sent to Performed at: 01 [facility] [address] [facility] [address], [place] [id number] MD Demarco Coffman MD Phone: [phone] Performed at: 02 [facility] [address] [place], [place] [id number] MD Richie Natarajan MD Phone: [phone]
[2018-10-26] MEDS ORDERED: TAMS0.4C97 PO (22:59)
--- NOTE | 2018-10-27 13:08 | PATHOLOGY ---
[facility] Accession Number: [id number] . 01 Material submitted: . kidney - SPONTANEOUSLY PASSED KIDNEY STONE . 01 Clinical history: . Spontaneously passed kidney stone . 02 Diagnosis: Spontaneously passed kidney stone: - Consistent with calculus. - The specimen is forwarded to an outside laboratory for further processing, with results to follow in an addendum. [facility] 10/27/2018 0901 Local . 02 Electronically signed: . Richie Natarajan MD, Pathologist NPI- [id number] . 01 Gross description: . Received fresh labeled "Sulma Padilla, kidney stone," is a granular, swenson-martínez calculus measuring 0.5 cm in maximum dimension. The specimen is forwarded to an outside laboratory for further processing. ([facility]; 10/27/2018) XDC/XPR 10/27/2018 0739 Local . 02 Pathologist provided ICD-10: N20.0 . 02 CPT . 197250 Specimen Comment: A courtesy copy of this report has been sent to Specimen Comment: [phone], . Specimen Comment: Report sent to / DR DOVE Performed at: 01 [facility] [address] [facility] [address], [place] [id number] MD Demarco Coffman MD Phone: [phone] Performed at: 02 [facility] [address] [place], [place] [id number] MD Richie Natarajan MD Phone: [phone]
[2018-10-30] MEDS ORDERED: AMLO5TAB10 PO (10:22)
[2018-10-30] MEDS ORDERED: HYDR-2761 PO (10:22)
[2018-10-30] MEDS ORDERED: CIPR500T94 PO (17:08)
[2018-10-30] MEDS ORDERED: LACT1CAP2 PO (17:09)
== END 2018-10-25 16:25 | disposition home or self-care (01) ==
LOC: ER 15:16 → 5 SOUTH 17:25
PROVIDERS: ADMIT Internal Medicine; ATTEND Internal Medicine
DX: N13.2 Hydronephrosis with renal and ureteral calculous obstruction (principal); R11.2 Nausea with vomiting, unspecified; E11.9 Type 2 diabetes mellitus without complications; E66.01 Morbid (severe) obesity due to excess calories; Z68.39 Body mass index [BMI] 39.0-39.9, adult; Z79.4 Long term (current) use of insulin; Z79.899 Other long term (current) drug therapy
CPT/HCPCS: 36415; 74018; 74176; 80053; 81001; 81025; 82365; 82962; 83036; 83690; 83735; 85025; 86140; 87086; 87186; 88300; 96361; 96365; 96366; 96372; 96375; 96376; 99284; G0378; J1815; J1885; J2270; J2405; J3475; J7030; G0379